=== PATIENT | male | born 1965 | race American Indian/Alaskan Native ===

== ENCOUNTER 2022-01-11 20:09 | Emergency (ER) | payer SELFPAY ==
--- NOTE | 2022-01-11 21:06 | Emergency Department Report ---
ED Male HPI - General Chief complaint: Urogenital-Male Stated complaint: PAIN WHEN URINATING Time Seen by Provider: 01/11/22 21:02 Source: patient Mode of arrival: Ambulatory Limitations: No Limitations - History of Present Illness Initial comments: Patient is a 56-year-old male who presents emergency room complaints of abdominal pain and urinary retention. Patient states he has not peed at all since 3 PM. Patient states he had a bout of urinary retention requiring ER visit 2 weeks ago. Patient states that he had a catheter placed and he used it for a week and then his urologist took it out. Patient states he had a urology appointment today to reassess the urinary retention but he missed the appointment. Patient states the pain is severe. Patient states the pain is 10 out of 10. Patient denies fever and chills. Patient denies back pain. Patient states this is lower abdominal pain. Patient states he has bladder distention. Patient denies nausea and vomiting. Patient denies recent travel. Patient denies recent international travel. Patient denies exposure to the novel coronavirus. Patient denies sick contacts. Patient denies fever and chills. Patient denies cough. Patient denies diarrhea. Patient denies coming in contact with anybody with symptoms of the novel coronavirus. Patient has a history of enlarged prostate. -: Gradual Severity scale (0 -10): 10 Quality: aching Consistency: constant Improves with: rest Worsens with: movement urinary retention. denies: discharge, swelling, mass, rash, blood in urine, dysuria, fever, nausea/vomiting, incontinence - Related Data Sexually active: No Allergies Allergy/AdvReac Type Severity Reaction Status Date / Time No Known Allergies Allergy Verified 01/11/22 20:17 ED Review of Systems ROS: Stated complaint: PAIN WHEN URINATING Other details as noted in HPI Constitutional: denies: chills, fever Eyes: denies: eye pain, eye discharge, vision change ENT: denies: ear pain, throat pain Respiratory: denies: cough, shortness of breath, wheezing Cardiovascular: denies: chest pain, palpitations Endocrine: no symptoms reported Gastrointestinal: as per HPI, abdominal pain. denies: nausea, diarrhea Genitourinary: as per HPI. denies: urgency, dysuria Musculoskeletal: denies: back pain, joint swelling, arthralgia Skin: denies: rash, lesions Neurological: denies: headache, weakness, paresthesias Psychiatric: denies: anxiety, depression Hematological/Lymphatic: denies: easy bleeding, easy bruising ED Past Medical Hx - Past Medical History Previous Medical History?: Yes Additional medical history: BPH, enlarged prostate - Surgical History Past Surgical History?: No - Family History Family history: no significant - Social History Smoking Status: Never Smoker Substance Use Type: None ED Physical Exam - General Limitations: No Limitations General appearance: alert, in no apparent distress - Head Head exam: Present: atraumatic, normocephalic - Eye Eye exam: Present: normal appearance - ENT ENT exam: Present: mucous membranes moist - Neck Neck exam: Present: normal inspection - Respiratory Respiratory exam: Present: normal lung sounds bilaterally. Absent: respiratory distress, wheezes, rales - Cardiovascular Cardiovascular Exam: Present: regular rate, normal rhythm. Absent: systolic murmur, diastolic murmur, rubs, gallop - GI/Abdominal GI/Abdominal exam: Present: soft, distended, tenderness, normal bowel sounds - Rectal Rectal exam: Present: deferred - Extremities Exam Extremities exam: Present: normal inspection - Back Exam Back exam: Present: normal inspection - Neurological Exam Neurological exam: Present: alert, oriented X3 - Psychiatric Psychiatric exam: Present: normal affect, normal mood - Skin Skin exam: Present: warm, dry, intact, normal color. Absent: rash ED Course Vital Signs 01/11/22 20:13 Temperature 98.4 F Pulse Rate 105 H Respiratory 18 Rate Blood Pressure 190/89 O2 Sat by Pulse 96 Oximetry - Reevaluation(s) Reevaluation #1: Nurse instructed to place Diaz. Patient agrees with Diaz. 01/11/22 21:05 Reevaluation #2: Patient put out a liter of clear yellow urine. Patient states feeling much better. Patient denies abdominal pain. Patient denies any complaints at this time. Patient states all of his symptoms have been resolved. 01/11/22 21:25 Reevaluation #3: I discussed all results and clinical findings with patient. I discussed plan of care with patient. Patient agrees with plan of care. Patient is stable for discharge. Patient will be discharged home. Patient given discharge instructions. Patient voiced understanding of discharge instructions. Patient be discharged with Diaz. 01/11/22 23:11 ED Medical Decision Making - Medical Decision Making Patient is a 56-year-old male who presents emergency room with urinary retention. Patient has not urinated since 3 PM. Patient states that he has lower abdominal pain and abdominal distention. Patient had a Diaz placed immediately after initial evaluation. Patient's symptoms were immediately resolved once the Diaz was placed. Patient had 1 L in the Diaz bag. Patient had a UA done which was negative for acute findings or infection. Patient will be discharged with the Diaz bag in place. Patient will require a urology visit. Patient already has a appointment set up with the urologist and 4 days. Patient given discharge instructions. Patient stable for discharge. Patient does not require further emergency medical service. Patient not require inpatient service. I discussed all results and clinical findings with patient. I discussed plan of care with patient. Patient agrees with plan of care. Patient is stable for discharge. Patient will be discharged home. Patient given discharge instructions. Patient voiced understanding of discharge instructions. - Differential Diagnosis Urinary retention, UTI, prostatitis. Critical care attestation.: If time is entered above; I have spent that time in minutes in the direct care of this critically ill patient, excluding procedure time. ED Disposition Clinical Impression: Urinary retention Abdominal pain Qualifiers: Abdominal location: lower abdomen, unspecified Qualified Code(s): R10.30 - Lower abdominal pain, unspecified Disposition: 01 HOME / SELF CARE / HOMELESS Is pt being admited?: No Does the pt Need Aspirin: No Condition: Stable Instructions: Indwelling Urinary Catheter Care, Adult, [id number], Acute Urinary Retention, Male, Acute Urinary Retention, Male, [id number] Additional Instructions: Patient to follow-up with primary care in 2 to 3 days. Patient to follow-up with urology in 2 to 3 days. Patient to rest. Patient to increase water. Patient to avoid strenuous exercise or heavy lifting until cleared by neurology and primary care.. Patient to take Tylenol or ibuprofen as needed for pain. Patient to return to the ER if condition worsens, changes or new symptoms arise. Patient to leave Diaz in place until removed by urologist. Referrals: WELLINGTON PULIDO [Registered Nurse] - 2-3 Days MARIANNE IRAHETA MD [Staff Physician] - 2-3 Days Time of Disposition: 23:14
[2022-01-11 22:17] LABS: Color,Urine Yellow (Yellow)
[2022-01-11 22:18] LABS: Bilirubin,Urine Negative (Negative); Blood,Urine Negative (Negative); Protein,Urine <15 mg/dL mg/dL (Negative); Urobilinogen,Urine < 2.0 mg/dL (<2.0)
[2022-01-12 01:32] VITALS: BP 138/85
== END 2022-01-12 01:33 | disposition home or self-care (01) ==
LOC: ED 20:09
DX: R33.9 Retention of urine, unspecified (principal); R10.30 Lower abdominal pain, unspecified; Z79.899 Other long term (current) drug therapy
CPT/HCPCS: 51702; 81001; 99283